=== PATIENT | female | born 1960 | race Caucasian/White ===

== ENCOUNTER → 2020-12-07 | Day surgery (SDC) | payer OTHER ==
[~2020-12-07] MED LIST: BSS OPTHALMIC SOL 15 ML BOT OPTH ONE; CEFAZOLIN/SWI 1gm 1 GM/10 ML SYR ONE; CODEINE 30MG/APAP 300MG TAB ONE; EPHEDRINE SULF 50 MG/ML VIAL ONE; FENTANYL CITR 100 MCG/2 ML ONE; GLYCOPYRROLATE 0.2 MG/ML SYR ONE; KETOROLAC 30 MG/ML INJ ONE; LIDOCAINE 1% MPF 5 ML VIAL ONE; LIDOCAINE 1% W/EPI 1:100,000 MDV 20 ML VIAL ONE; LIDOCAINE JELLY 2%- 5 ML TUBE ONE; METOCLOPRAMIDE 10 MG/2mL INJ ONE; MIDAZOLAM HCL 2 MG/2 ML INJ ONE; Mastisol Adhesive Liq ONE; NEOSTIGMINE 1 MG/ML -5 ML ONE; NS 0.9% VIAL 10 ML ONE; ONDANSETRON 4 MG/2 ML VIAL ONE; ROCURONIUM 50 MG/5 ML VIAL IV ONE; Ringers Lactate 1,000 ML IV ONE; dexAMETHasone 10 MG/ML VIAL ONE; propofoL 200 MG/20 ML VIAL IV ONE
[2020-12-07 09:23] VITALS: O2SAT 100
[2020-12-07 11:13] VITALS: BP 116/73; TEMP 97.1
--- NOTE | 2020-12-11 12:55 | OP ---
Surgeon: Juma Tamayo MD Preoperative Diagnosis: Excess eyelid skin upper lids. Postoperative Diagnosis: Excess eyelid skin upper lids. Procedure Performed: Upper blepharoplasty. Anesthesia: General. Procedure In Detail: After satisfactory induction of general anesthesia, the upper lids were infiltrated with 1% xylocaine with epinephrine. She did marked out holding area for the skin resection. The wound was then prepped with Betadine swabs. Dry sterile drapes placed in the usual manner. Globe protector was placed with BSS irrigation. Then, the upper incision was made about 8 mm above the sella margin, tapering medially, extending laterally toward the lateral canthus skin. Then, electrocautery was used to dissect laterally down to the ocular muscles and then tenotomy scissors used to dissect underneath the brachial oculi, extending this incision full-thickness. Then, the premarked area was incised first with a scalpel laterally, then the tenotomy scissors . fat pad to be removed and electrocautery used for hemostasis. Wound was closed with 6-0 Prolene interrupted lateral,_ running subcuticular medially. Left side was done in identical manner. The globe protector was removed. The tincture of benzoin, Steri-Strips were applied. The patient tolerated procedure well and returned to Recovery. CORINE/RAFAELA Voice ID: [id number] Report ID: [id number] LINO
== END ==
LOC: OR 08:49
PROVIDERS: ATTEND Specialist
PROC: 080N0ZZ Alteration of Right Upper Eyelid, Open Approach (ICD-10-PCS; 2020-12-07)
PROC: 080P0ZZ Alteration of Left Upper Eyelid, Open Approach (ICD-10-PCS; principal; 2020-12-07 09:00)
DX: H02.34 Blepharochalasis left upper eyelid (principal); H02.31 Blepharochalasis right upper eyelid; Z20.822 Contact with and (suspected) exposure to COVID-19
CPT/HCPCS: 82947 ×2; 15823; J2704; J2765; J2250; J3010; J1100; J2710; J0690; J7120; J2405